=== PATIENT | male | born 1975 | race Caucasian/White ===

== ENCOUNTER 2021-08-23 13:24 | Day surgery (SDC) | payer BC ==
[~2021-08-23] VITALS: Ht 162.6 cm; Wt 59.9 kg
[2021-08-23] MEDS ORDERED: IOHEXOL-350 100 ML VIAL IV ONE (14:03)
[2021-08-23] MEDS ORDERED: IV NS 0.9% 250 ML IV ONE (14:03)
[2021-08-23] MEDS ORDERED: CT SWABBABLE VALVE TRANS SET 1 EA INFUS.SET MC ONE (14:03)
[2021-08-23] MEDS ORDERED: METOPROLOL TARTRATE INJ 5 MG/5 ML AMPUL ONE (14:19)
== END 2021-08-23 23:59 | disposition home or self-care (01) ==
LOC: CT 13:24
DX: I34.0 Nonrheumatic mitral (valve) insufficiency (principal); I25.10 Atherosclerotic heart disease of native coronary artery without angina pectoris; R91.8 Other nonspecific abnormal finding of lung field; K44.9 Diaphragmatic hernia without obstruction or gangrene; J98.09 Other diseases of bronchus, not elsewhere classified
CPT/HCPCS: 75574; J3490; J7050; Q9967